=== PATIENT | female | born 1985 | race Caucasian/White ===

== ENCOUNTER 2016-07-31 21:40 | Emergency (ER) | payer BC ==
[~2016-07-31] VITALS: Ht 160 cm; Wt 86.5 kg
[2016-07-31 21:50] VITALS: Ht 160 cm; Wt 86.5 kg
[2016-07-31] MEDS ORDERED: IBUP-1542 PO (23:29)
[2016-07-31] MEDS ORDERED: PEN500 PO (23:29)
[2016-07-31] MEDS ORDERED: BENZ100C70 PO (23:29)
[2016-07-31] MEDS ORDERED: ACET500C5 PO (23:30)
--- NOTE | 2016-07-31 23:37 | ERD ---
ER Documentation Chief Complaint Date/Time DATE: 07/31/16 TIME: 23:32 Chief Complaint headache, sore throat x 5 days HPI Patient is a 31-year-old female who presents to the ED with sore throat, congestion, body aches 5 days. Denies night sweats, hemoptysis. She states that other people at home have been sick. She complains of pain when she swallows. Also complains of swollen neck. Tactile fevers at home. No chills. Denies abdominal pain, nausea, vomiting, diarrhea or constipation. She is able to eat but it is painful. Denies headache, dizziness, neck pain or stiffness. Denies rashes or seizures. She has taken Motrin for her pain. ROS All systems reviewed and are negative except as per history of present illness. Medications Home Meds Active Scripts Acetaminophen* (Tylophen*) 500 Mg Capsule, 1 CAP PO Q6H Y for PAIN AND OR ELEVATED TEMP, #20 CAP Prov:VIPINTARIANSAHARA PA-C 07/31/16 Ibuprofen* (Motrin*) 600 Mg Tab, 600 MG PO Q6, #30 TAB Prov:VIPINTARIANSAHARA PA-C 07/31/16 Benzonatate* (Tessalon Perle*) 100 Mg Capsule, 100 MG PO Q8H Y for COUGH for 10 Days, CAP Prov:VIPINTARIANSAHARA PA-C 07/31/16 Penicillin V Potassium* (Penicillin V K*) 500 Mg Tab, 500 MG PO BID for 10 Days , TAB Prov:VIPINTARIANSAHARA PA-C 07/31/16 Allergies Allergies: Coded Allergies: No Known Drug Allergies (Verified Allergy, Unknown, 09/19/14) PMhx/Soc History of Surgery: Yes () Anesthesia Reaction: No Hx Neurological Disorder: No Hx Respiratory Disorders: No Hx Cardiac Disorders: No Hx Psychiatric Problems: No Hx Miscellaneous Medical Probl: No Hx Alcohol Use: No Hx Substance Use: No Hx Tobacco Use: No FmHx Family History: No coronary disease, No diabetes, No other Physical Exam Vitals Vital Signs Date Time Temp Pulse Resp B/P Pulse Ox O2 Delivery O2 Flow Rate FiO2 07/31/16 21:50 100.0 69 20 144/86 100 Physical Exam GENERAL: Well-developed, well-nourished female. Appears in no acute distress. HEAD: Normocephalic, atraumatic. EYES: Pupils are equally reactive bilaterally. EOMs grossly intact. No conjunctival erythema. ENT: Moist mucous membranes. No uvula deviation. No kissing tonsils. No exudates. Erythematous throat. Cervical lymphadenopathy NECK: Supple. . No meningismus. negative kernig. negative brudinski. LUNG: Clear to auscultation bilaterally. No rhonchi, wheezing, rales or coarse breath sounds. HEART: Regular rate and rhythm. No murmurs, rubs or gallops. NEUROLOGIC: Alert and oriented. Moving all four extremities. 5/5 strength in all extremities. Normal speech. Steady gait. SKIN: Normal color. Warm and dry. No rashes or lesions. Capillary refill < 2 seconds Procedures/MDM ER COURSE: I kept the patient and/or family informed of laboratory and diagnostic imaging results throughout the emergency room course. MEDICAL DECISION MAKING: This is a 31-year-old female who presents with sore throat, congestion and body aches 5 days. Vital signs were reviewed. Patient is afebrile. Patient is not hypoxic. Patient is not toxic or ill-appearing. Patient likely has pharyngitis , bacterial versus viral. Low suspicion for pneumonia, PE, pneumothorax, ACS, epiglottitis, obstruction, TB, pertussis, meningitis, sepsis. Low suspicion for peritonsillar abscess, strep pharyngitis, mononucleosis, dental abscess DISCHARGE: At this time, patient is stable for discharge and outpatient management with no new complaints during the ER course. Patient was sent home with Tylenol, Motrin , Tessalon Perles and penicillin VK. Patient will be discharged home with instructions to recheck for new or worsening symptoms such as fever, nausea, weakness, LOC and to follow up with primary care in the next 1-2 days. Patient was advised to return to the ER for any new or worsening symptoms. Plan was discussed and patient and/or family understands and agrees. Home instructions were given. Departure Diagnosis: Primary Impression: Pharyngitis Pharyngitis/tonsillitis etiology: unspecified etiology Qualified Code: J02.9 - Pharyngitis, unspecified etiology Condition: Stable Patient Instructions: Pharyngitis, Strep (Presumed) Additional Instructions: Call your primary care doctor TOMORROW for an appointment during the next 1-2 days.See the doctor sooner or return here if your condition worsens before your appointment time. SAHARA MEDEROS PA-C Jul 31, 2016 23:37
== END 2016-07-31 23:40 | disposition home or self-care (01) ==
LOC: FTE 21:40
DX: J02.9 Acute pharyngitis, unspecified (principal)
CPT/HCPCS: 99284

== ENCOUNTER 2016-09-12 19:24 | Emergency (ER) | payer BC ==
[~2016-09-12] VITALS: Ht 152.4 cm; Wt 87.5 kg
[~2016-09-12 19:24] MED LIST: ACET500C5 PO; BENZ100C70 PO; IBUP-1542 PO; PEN500 PO
[2016-09-12 19:34] VITALS: Ht 152.4 cm; Wt 87.5 kg
[2016-09-12] MEDS ORDERED: ONDANSETRON 4 MG INJ IV STA (20:22)
[2016-09-12] MEDS ORDERED: SOD CHLORIDE 0.9% 1,000 ML IV STA (20:22)
[2016-09-12] MEDS ORDERED: morphine 4 MG/ML VIAL IV STA (20:22)
--- NOTE | 2016-09-12 20:29 | ERD ---
ER Documentation Chief Complaint Date/Time DATE: 09/12/16 TIME: 20:23 Chief Complaint pelvic pain and heavy bleeding started friday HPI 31-year-old female with history of dysmenorrhea presents to the emergency department complaining of bilateral lower pelvic pain, heavy menstrual bleeding , flank pain, nausea, and vomiting 6 days. Patient states the pain is intermittent and describes it as cramping. She currently reports a 10 out of 10 pain localized to her pelvic region. Patient states she has not attempted to treat her pain with Motrin or Tylenol at home thus far. She states today she vomited 4 times and is having difficulty keeping food down. She denies any dysuria, diarrhea, or fever. Patient states she has not been exposed to any new sexual partners. She denies any vaginal discharge or rash. Patient states she has been seen at this ER in the past for similar symptoms but notes that her bleeding is heavier this time. ROS All systems reviewed and are negative except as per history of present illness. Medications Home Meds Active Scripts Acetaminophen* (Tylophen*) 500 Mg Capsule, 1 CAP PO Q6H Y for PAIN AND OR ELEVATED TEMP, #20 CAP Prov:SHOKATRINTARIANCARSONAZ PA-C 07/31/16 Ibuprofen* (Motrin*) 600 Mg Tab, 600 MG PO Q6, #30 TAB Prov:SHOKATRINTARIANSAHARA PA-C 07/31/16 Benzonatate* (Tessalon Perle*) 100 Mg Capsule, 100 MG PO Q8H Y for COUGH for 10 Days, CAP Prov:SHOKATRINTARIANCARSONAZ PA-C 07/31/16 Penicillin V Potassium* (Penicillin V K*) 500 Mg Tab, 500 MG PO BID for 10 Days , TAB Prov:SHOKATRINTARIANCARSONAZ PA-C 07/31/16 Allergies Allergies: Coded Allergies: No Known Drug Allergies (Verified Allergy, Unknown, 09/12/16) PMhx/Soc Medical and Surgical Hx: pt denies Medical Hx History of Surgery: Yes ( x 3) Anesthesia Reaction: No Hx Neurological Disorder: No Hx Respiratory Disorders: No Hx Cardiac Disorders: No Hx Psychiatric Problems: No Hx Miscellaneous Medical Probl: No Hx Alcohol Use: No Hx Substance Use: No Hx Tobacco Use: No Smoking Status: Never smoker Physical Exam Vitals Vital Signs Date Time Temp Pulse Resp B/P Pulse Ox O2 Delivery O2 Flow Rate FiO2 09/12/16 19:34 98.8 84 18 101/62 98 Physical Exam Const: Well-developed, well-nourished, in moderate distress Head: Atraumatic Eyes: Normal Conjunctiva ENT: Normal External Ears, Nose and Mouth. Neck: Full range of motion..~ No meningismus. Resp: Clear to auscultation bilaterally Cardio: Regular rate and rhythm, no murmurs Abd: Soft, tenderness to palpation of bilateral pelvic region. non distended. Normal bowel sounds. No peritoneal signs Skin: No petechiae or rashes Back: Bilateral flank tenderness, no midline spinal tenderness Ext: No cyanosis, or edema Neur: Awake and alert Psych: Normal Mood and Affect Result Diagram: 09/12/16214909/12/162149 Results 24 hrs Laboratory Tests Test 09/12/16 20:40 09/12/16 21:50 Urine Color LT. YELLOW Urine Clarity SLIGHTLY CLOUDY Urine pH 6.0 Urine Specific [place] 1.020 Urine Ketones NEGATIVE Urine Nitrite NEGATIVE Urine Bilirubin NEGATIVE Urine Urobilinogen 0.2 E.U./dL Urine Leukocyte Esterase NEGATIVE Urine Microscopic RBC 0-2/HPF Urine Microscopic WBC 2-5/HPF Urine Squamous Epithelial Cells MODERATE Urine Bacteria FEW Urine Yeast RARE Urine Hemoglobin TRACE Urine Glucose NEGATIVE% Urine Total Protein NEGATIVE White Blood Count 13.210^3/ul Red Blood Count 4.2110^6/ul Hemoglobin 10.4g/dl Hematocrit 32.3% Mean Corpuscular Volume 76.7fl Mean Corpuscular Hemoglobin 24.7pg Mean Corpuscular Hemoglobin Concent 32.2g/dl Red Cell Distribution Width 14.6% Platelet Count 84328^3/UL Mean Platelet Volume 11.8fl Neutrophils % 60.8% Lymphocytes % 29.9% Monocytes % 5.4% Eosinophils % 3.0% Basophils % 0.5% Nucleated Red Blood Cells % 0.0/100WBC Neutrophils # 8.010^3/ul Lymphocytes # 3.910^3/ul Monocytes # 0.710^3/ul Eosinophils # 0.410^3/ul Basophils # 0.110^3/ul Nucleated Red Blood Cells # 0.010^3/ul Sodium Level 135mmol/L Potassium Level 5.0mmol/L Chloride Level 103mmol/L Carbon Dioxide Level 23mmol/L Anion Gap 14 Blood Urea Nitrogen 17mg/dl Creatinine 0.55mg/dl Glucose Level 95mg/dl Calcium Level 9.7mg/dl Total Bilirubin 0.2mg/dl Direct Bilirubin 0.00mg/dl Indirect Bilirubin 0.2mg/dl Aspartate Amino Transf (AST/SGOT) 41IU/L Alanine Aminotransferase (ALT/SGPT) 34IU/L Alkaline Phosphatase 117IU/L Total Protein 8.4g/dl Albumin 4.4g/dl Globulin 4.00g/dl Albumin/Globulin Ratio 1.10 Lipase 112U/L Current Medications Medications (Trade) Dose Ordered Sig/Farheen Route PRN Reason Start Time Stop Time Status Last Admin Dose Admin Sodium Chloride (NS) 1,000 ml @ 1,000 mls/hr Q1H STAT IV 09/12/16 20:22 09/12/16 21:21 DC 09/12/16 21:44 Morphine Sulfate (morphine) 4 mg ONCE STAT IV 09/12/16 20:22 09/12/16 20:24 DC 09/12/16 21:45 Ondansetron HCl (Zofran Inj) 4 mg ONCE STAT IV 09/12/16 20:22 09/12/16 20:24 DC 09/12/16 21:45 Procedures/MDM PROCEDURE: Pelvic ultrasound. CLINICAL INDICATION: Pelvic pain TECHNIQUE: Castano scale, color doppler, spectral doppler ultrasound of the pelvis was performed with transabdominal and transvaginal transducers. COMPARISON: No prior studies are available for comparison. FINDINGS: Uterus: Position: Anteverted. Normal myometrial echogenicity. Normal appearance of the endometrium. Ovaries: Normal sized ovaries with preserved blood flow. No adnexal masses. Sub-centimeter follicle noted within the right ovary. Free fluid: None. Measurements: Endometrium: 0.98 cm Uterus: 9.7 x 4.6 x 5.5 cm Right ovary: 2.8 x 1.6 x 1.9 cm Left ovary: 3.3 x 2.3 x 2.7 cm IMPRESSION: Normal examination. RPTAT: AADD .Dean Mcginnis MD, MD Date Time Electronically viewed and signed by .Dean Mcginnis MD, on 09/12/2016 21:56 .B/ CC: BERNARDINO RODRIGUEZ PA-C This is a well-appearing 31-year-old female with a history of dysmenorrhea who presents to the emergency department complaining of pelvic pain, heavy menstrual bleeding, nausea and vomiting 6 days. Patient denies any fever, new sexual partners, or other vaginal discharge. vital signs reviewed. Patient afebrile, normotensive and not tachycardic upon arrival. Abdominal exam significant for lower pelvic tenderness to palpation. CBC showed no evidence of slightly elevated white count of 13.2. Otherwise no evidence of severe anemia. CMP showed no evidence of electrolyte abnormalities, severe acidosis, alkalosis , renal failure, or liver disease. Lipase showed no evidence of acute pancreatitis. UA showed no evidence of acute infection or hematuria. Urine test was negative. Pelvic ultrasound unremarkable for acute abnormality. Patient received a bolus of fluid and pain medication while in the emergency department and reports significant improvement of symptoms. Patient clinical presentation consistent with dysmenorrhea. At this time I have low suspicion for ectopic , ovarian torsion, tubo-ovarian abscess , pelvic inflammatory disease, acute appendicitis, small bowel obstruction, severe systemic illness or sepsis. Patient to follow-up with [facility]URSE specialist for proper management of her ongoing dysmenorrhea. Patient will be provided with pain and nausea medication medication. All lab and imaging reports provided to the patient. Based on patient's history of present illness and physical examination the decision was made to discharge. The patient was re-evaluated after ED treatment and stabilizing measures, and symptoms have improved. There is no evidence of life threatening injuries or illnesses at this time. On re-examination, patient resting in no distress, stable vital signs, reports feeling better and safe for discharge with outpatient follow up with PMD in 1-2 days. Patient given return precautions. Departure Diagnosis: Primary Impression: Dysmenorrhea Additional Impression: Acute pain in female pelvis BERNARDINO RODRIGUEZ PA-C September 12, 2016 20:29
[2016-09-12 21:29] LABS: ADD UMIC YES; URINE BILIRUBIN (Dip) NEGATIVE (NEGATIVE); URINE BLOOD (Dip) TRACE (NEGATIVE); URINE COLOR LT. YELLOW (YELLOW); URINE GLUCOSE (Dip) NEGATIVE (NEGATIVE); URINE KETONES (Dip) NEGATIVE (NEGATIVE); URINE LEUKOCYTE ESTERASE (Dip) NEGATIVE (NEGATIVE); URINE NITRITE (Dip) NEGATIVE (NEGATIVE); URINE TOTAL PROTEIN (Dip) NEGATIVE (NEGATIVE); URINE UROBILINOGEN (Dip) 0.2 E.U./dL (0.1-1.0)
[2016-09-12 21:46] LABS: URINE RBCS 0-2 /HPF (0)
[2016-09-12 21:47] LABS: BACTERIA,URINE FEW; SQUAMOUS EPITHELIAL CELL,UR MODERATE
--- NOTE | 2016-09-12 21:57 | RADRPT ---
PROCEDURE: Pelvic ultrasound. CLINICAL INDICATION: Pelvic pain TECHNIQUE: Castano scale, color doppler, spectral doppler ultrasound of the pelvis was performed with transabdominal and transvaginal transducers. COMPARISON: No prior studies are available for comparison. FINDINGS: Uterus: Position: Anteverted. Normal myometrial echogenicity. Normal appearance of the endometrium. Ovaries: Normal sized ovaries with preserved blood flow. No adnexal masses. Sub-centimeter follicle noted within the right ovary. Free fluid: None. Measurements: Endometrium: 0.98 cm Uterus: 9.7 x 4.6 x 5.5 cm Right ovary: 2.8 x 1.6 x 1.9 cm Left ovary: 3.3 x 2.3 x 2.7 cm IMPRESSION: Normal examination. RPTAT: AADD .Dean Mcginnis MD, Date Time Electronically viewed and signed by .Dean Mcginnis MD, MD on 09/12/2016 21:56 .B/
[2016-09-12 21:59] LABS: ADD SCAN DIFF NO
[2016-09-12 22:02] LABS: BASOPHIL # 0.1 10^3/ul (0.0-0.1); BASOPHILS % 0.5 % (0.0-2.0); EOSINOPHILS # 0.4 10^3/ul (0.0-0.5); HEMATOCRIT 32.3 % (37.0-47.0); HEMOGLOBIN 10.4 g/dl (12.0-16.0); LYMPHOCYTES # 3.9 10^3/ul (0.8-2.9); LYMPHOCYTES % 29.9 % (15.0-51.0); MEAN CORPUSCULAR HEMOGLOBIN 24.7 pg (29.0-33.0); MEAN CORPUSCULAR HGB CONC 32.2 g/dl (32.0-37.0); MEAN CORPUSCULAR VOLUME 76.7 fl (82.0-101.0); MEAN PLATELET VOLUME 11.8 fl (7.4-10.4); MONOCYTE # 0.7 10^3/ul (0.3-0.9); MONOCYTES % 5.4 % (0.0-11.0); NEUTROPHILS % 60.8 % (39.0-77.0); PLATELET COUNT 342 10^3/UL (140-415); RED BLOOD COUNT 4.21 10^6/ul (4.20-5.40); RED CELL DISTRIBUTION WIDTH 14.6 % (11.5-14.5); WHITE BLOOD COUNT 13.2 10^3/ul (4.8-10.8)
[2016-09-12 22:21] LABS: ALBUMIN 4.4 g/dl (3.3-4.9); ALBUMIN/GLOBULIN RATIO 1.1; BILIRUBIN,INDIRECT 0.2 mg/dl (0-1.1); BILIRUBIN,TOTAL 0.2 mg/dl (0.2-1.3); CALCIUM 9.7 mg/dl (8.4-10.2); CREATININE 0.55 mg/dl (0.44-1.00); TOTAL PROTEIN 8.4 g/dl (6.1-8.1)
[2016-09-12] MEDS ORDERED: IBUP-1542 PO (22:58)
[2016-09-12] MEDS ORDERED: ONDA4TAB14 PO (22:58)
[2016-09-12] MEDS ORDERED: HYDR-906 PO (22:58)
[2016-09-12 23:33] VITALS: BP 115/72; PULSE 72; RESP 16
== END 2016-09-12 23:39 | disposition home or self-care (01) ==
LOC: FTE 19:24
DX: N94.6 Dysmenorrhea, unspecified (principal); R11.2 Nausea with vomiting, unspecified
CPT/HCPCS: 36415; 76830; 76856; 80053; 81001; 83690; 85025; 96374; 96375; 99285; J2270; J2405; J7030; 81003

== ENCOUNTER 2016-12-30 15:13 | Emergency (ER) | payer SELFPAY ==
[~2016-12-30] VITALS: Ht 152.4 cm; Wt 83.0 kg
[~2016-12-30 15:13] MED LIST changes: +HYDR-906 PO; +ONDA4TAB14 PO
[2016-12-30 15:15] VITALS: Ht 152.4 cm; Wt 83.0 kg
[2016-12-31] MEDS ORDERED: IBUP-1542 PO (20:15)
== END 2016-12-30 20:25 | disposition left against medical advice (07) ==
LOC: FTE 15:13
DX: Z53.21 Procedure and treatment not carried out due to patient leaving prior to being seen by health care provider (principal)

== ENCOUNTER 2016-12-31 15:40 | Emergency (ER) | payer BC ==
[~2016-12-31] VITALS: Wt 77.3 kg
[2016-12-31] MEDS ORDERED: IBUPROFEN 800 MG TAB PO ONE (17:00)
[2016-12-31] MEDS ORDERED: IBUP-1542 PO (20:15)
--- NOTE | 2016-12-31 20:21 | RADRPT ---
PROCEDURE: XR Right index finger CLINICAL INDICATION: Trauma 4 days ago TECHNIQUE: AP, oblique, and lateral radiographs were submitted. COMPARISON: None FINDINGS: Osseous structures: appear well mineralized and intact with no fracture or destructive process iden tified. Joint spaces: are well maintained, with no significant spurring, erosion or joint effusion evident. Soft tissues: appear unremarkable. IMPRESSION: Unremarkable right index finger. Physician Sharif Date Time Electronically viewed and signed by Rene Gutierrez Physician on 12/31/2016 20:20 RH/
--- NOTE | 2016-12-31 20:32 | ERD ---
ER Documentation Chief Complaint Date/Time DATE: 12/31/16 TIME: 20:25 Chief Complaint TWISTED Kenisha MCFARLANE FINGER HPI 31-year-old female complaining of right pain of her right index finger. Patient stated that she twisted it at work 5 days ago. She was trying to adjust a wire shelf, when her finger was caught in between the shelf. Patient stated that her pain and the pain and swelling have become progressively worse. She now is unable to move her finger due to pain. Patient is right-hand dominant. ROS All systems reviewed and are negative except as per history of present illness. Medications Home Meds Active Scripts Ibuprofen* (Motrin*) 600 Mg Tab, 600 MG PO Q6H Y for PAIN AND OR ELEVATED TEMP, #30 TAB Prov:ROVERTO CASE PLANS EXAMINER 12/31/16 Ondansetron (Ondansetron Odt) 4 Mg Tab.rapdis, 4 MG PO Q6H Y for NAUSEA AND/OR VOMITING, #20 TAB Prov:BERNARDINO RODRIGUEZ PA-C 09/12/16 Hydrocodone/Acetaminophen (Anton 5-325 Tablet) 1 Each Tablet, 1 TAB PO Q6H Y for PAIN, #7 TAB Prov:BERNARDINO RODRIGUEZ PA-C 09/12/16 Ibuprofen* (Motrin*) 600 Mg Tab, 600 MG PO Q6, #30 TAB Prov:BERNARDINO RODRIGUEZ PA-C 09/12/16 Acetaminophen* (Tylophen*) 500 Mg Capsule, 1 CAP PO Q6H Y for PAIN AND OR ELEVATED TEMP, #20 CAP Prov:SAHARA MEDEROS-C 07/31/16 Ibuprofen* (Motrin*) 600 Mg Tab, 600 MG PO Q6, #30 TAB Prov:SAHARA MEDEROS-C 07/31/16 Benzonatate* (Tessalon Perle*) 100 Mg Capsule, 100 MG PO Q8H Y for COUGH for 10 Days, CAP Prov:SAHARA MEDEROS-C 07/31/16 Penicillin V Potassium* (Penicillin V K*) 500 Mg Tab, 500 MG PO BID for 10 Days , TAB Prov:SAHARA MEDEROS PA-C 07/31/16 Allergies Allergies: Coded Allergies: No Known Drug Allergies (Verified Allergy, Unknown, 09/12/16) PMhx/Soc History of Surgery: Yes ( x 3) Anesthesia Reaction: No Hx Neurological Disorder: No Hx Respiratory Disorders: No Hx Cardiac Disorders: No Hx Psychiatric Problems: No Hx Miscellaneous Medical Probl: No Hx Alcohol Use: No Hx Substance Use: No Hx Tobacco Use: No Smoking Status: Never smoker Physical Exam Vitals Vital Signs Date Time Temp Pulse Resp B/P Pulse Ox O2 Delivery O2 Flow Rate FiO2 12/31/16 15:46 98.0 88 20 124/58 99 Physical Exam General: Patient is well-developed. Awake, alert, and conversant, in no apparent distress Skin: Warm and dry Head: Normocephalic, atraumatic without palpable deformities Eyes: Pupils equal, round, and reactive to light. Extraocular movements intact. No periorbital ecchymosis or step-off Chest: No surface trauma. Nontender without crepitus or deformity. No palpable subcutaneous air. Lungs have good tidal volume, lungs clear to auscultate bilaterally Heart: Regular rate and rhythm. No murmur, rub, or gallop Extremities: Right index finger swollen without ecchymosis, tender to palpation. Patient refused active or passive range of motion due to pain. Sensation to light touch intact. All peripheral pulses are intact and equal Neuro: Alert and oriented 4, GCS 15, cranial nerves II through XII intact. Motor and sensory exam is nonfocal. Reflexes are symmetric Results 24 hrs Current Medications Medications (Trade) Dose Ordered Sig/Farheen Route PRN Reason Start Time Stop Time Status Last Admin Dose Admin Ibuprofen (Motrin) 800 mg ONCE ONCE PO 12/31/16 17:00 12/31/16 17:01 DC 12/31/16 17:33 PROCEDURE: XR Right index finger CLINICAL INDICATION: Trauma 4 days ago TECHNIQUE: AP, oblique, and lateral radiographs were submitted. COMPARISON: None FINDINGS: Osseous structures: appear well mineralized and intact with no fracture or destructive process identified. Joint spaces: are well maintained, with no significant spurring, erosion or joint effusion evident. Soft tissues: appear unremarkable. IMPRESSION: Unremarkable right index finger. R Matt, Physician Date Time Electronically viewed and signed by Physician Sharif on 12/31/2016 20:20 RH/ CC: ROVERTO CASE NP Procedures/MDM Well-appearing 31-year-old female presented ED was right finger pain after injury. X-ray of the right index finger was unremarkable. No signs of fractures or dislocation. Likely patient has sustained a sprain of her right index finger The area of injury was immobilized with a metal finger splint. Patient was noted to be comfortable and neurovascularly intact both before and after the immobilization. Patient was given ibuprofen in the ED for pain. Patient appears well, stable for discharge and outpatient management. Medical decision making shared with patient and family. Education provided to patient and family. Patient and family expressed understanding of the plan. Medications on discharge: Ibuprofen. Follow-up: Primary care provider in 2-3 days or return to ED if worse. Disclaimer: Inadvertent spelling and grammatical errors are likely due to EHR/ dictation software use and do not reflect on the overall quality of patient care. Also, please note that the electronic time recorded on this note does not necessarily reflect the actual time of the patient encounter. Departure Diagnosis: Primary Impression: Finger sprain Encounter type: initial encounter Finger: index finger Sprain of finger site: unspecified site Laterality: right Qualified Code: S63.610A - Sprain of right index finger, unspecified site of finger, initial encounter Condition: Stable Patient Instructions: Sprain Finger Additional Instructions: Call your primary care doctor TOMORROW for an appointment during the next 2-3 days.See the doctor sooner or return here if your condition worsens before your appointment time. ROVERTO CASE NP Dec 31, 2016 20:32
[2016-12-31 20:50] VITALS: BP 118/64; PULSE 72; RESP 20; TEMP 98.3
== END 2016-12-31 20:51 | disposition home or self-care (01) ==
LOC: FTE 15:40
DX: S63.610A Unspecified sprain of right index finger, initial encounter (principal); W23.1XXA Caught, crushed, jammed, or pinched between stationary objects, initial encounter; Y92.89 Other specified places as the place of occurrence of the external cause
CPT/HCPCS: 29130; 73140; 99283; Z7610

== ENCOUNTER 2017-02-03 16:58 | Emergency (ER) | payer BC ==
[~2017-02-03] VITALS: Ht 160 cm; Wt 80.0 kg
[~2017-02-03 16:58] MED LIST changes: -PEN500 PO; +PENI500T PO
[2017-02-03 17:13] VITALS: Ht 160 cm; Wt 80.0 kg
--- NOTE | 2017-02-03 19:42 | RADRPT ---
PROCEDURE: XR Chest. CLINICAL INDICATION: Cough TECHNIQUE: A single portable view of the chest was obtained. COMPARISON: None FINDINGS: The cardiomediastinal silhouette is within normal limits. The lung volumes are low with bibasilar co mpressive atelectasis. The remaining lungs and pleural spaces are clear. The soft tissues and osseo us structures are unremarkable. IMPRESSION: No acute cardiopulmonary disease. Low lung volumes with bibasilar compressive atelectasis. RPTAT: HPNM Physician Courtney Date Time Electronically viewed and signed by Nadir Alcocer Physician on 02/03/2017 19:42 /
[2017-02-03] MEDS ORDERED: UDROBDM PO (19:53)
[2017-02-03] MEDS ORDERED: TYL500 PO (19:54)
--- NOTE | 2017-02-03 20:10 | ERD ---
ER Documentation Chief Complaint Date/Time DATE: 02/03/17 TIME: 20:[address],COUGH HPI This is a 31-year-old female presents to the ER with a sore throat and cough for the last 3 days. Patient states that cough is worsening and she states that her back history time she coughs. Patient denies any chest pain or shortness of breath. That she had a fever the first 2 days, however the fever has resolved. Patient denies any nausea vomiting or diarrhea. There are no sick contacts at home. She has not traveled anywhere. ROS 12 point review of systems was done, all negative except per HPI. Medications Home Meds Active Scripts Acetaminophen* (Tylenol*) 500 Mg Tab, 1000 MG PO Q8 Y for PAIN AND OR ELEVATED TEMP for 3 Days, TAB Prov:SOY DEXTER 02/03/17 Guaifenesin-Dextromethorphan* (Robitussin* DM) 100MG/10MG/5ML Syrup, 10 ML PO Q4H Y for COUGH for 5 Days, ML Prov:SOY DEXTER 02/03/17 Ibuprofen* (Motrin*) 600 Mg Tab, 600 MG PO Q6H Y for PAIN AND OR ELEVATED TEMP, #30 TAB Prov:ROVERTO CASE CASE MANAGEMENT RN 12/31/16 Ondansetron (Ondansetron Odt) 4 Mg Tab.rapdis, 4 MG PO Q6H Y for NAUSEA AND/OR VOMITING, #20 TAB Prov:BERNARDINO RODRIGUEZ PA-C 09/12/16 Hydrocodone/Acetaminophen ([place] 5-325 Tablet) 1 Each Tablet, 1 TAB PO Q6H Y for PAIN, #7 TAB Prov:BERNARDINO RODRIGUEZC 09/12/16 Ibuprofen* (Motrin*) 600 Mg Tab, 600 MG PO Q6, #30 TAB Prov:BERNARDINO RODRIGUEZ PA-C 09/12/16 Acetaminophen* (Tylophen*) 500 Mg Capsule, 1 CAP PO Q6H Y for PAIN AND OR ELEVATED TEMP, #20 CAP Prov:SAHARA MEDEROS PA-C 07/31/16 Ibuprofen* (Motrin*) 600 Mg Tab, 600 MG PO Q6, #30 TAB Prov:SAHARA MEDEROSC 07/31/16 Benzonatate* (Tessalon Perle*) 100 Mg Capsule, 100 MG PO Q8H Y for COUGH for 10 Days, CAP Prov:SAHARA MEDEROS PA-C 07/31/16 Penicillin V Potassium* (Penicillin V K*) 500 Mg Tab, 500 MG PO BID for 10 Days , TAB Prov:OMKARSAHARA BRYANT PA-C 07/31/16 Allergies Allergies: Coded Allergies: No Known Drug Allergies (Verified Allergy, Unknown, 09/12/16) PMhx/Soc Medical and Surgical Hx: pt denies Medical Hx History of Surgery: Yes ( x 3) Anesthesia Reaction: No Hx Neurological Disorder: No Hx Respiratory Disorders: No Hx Cardiac Disorders: No Hx Psychiatric Problems: No Hx Miscellaneous Medical Probl: No Hx Alcohol Use: No Hx Substance Use: No Hx Tobacco Use: No Smoking Status: Never smoker Physical Exam Vitals Vital Signs Date Time Temp Pulse Resp B/P Pulse Ox O2 Delivery O2 Flow Rate FiO2 02/03/17 17:13 98.1 79 20 121/72 99 Physical Exam GENERAL: The patient is well-developed, well-nourished, in no acute distress. NECK: Cervical spine is non tender with no step off. Supple, no nuchal rigidity HEENT: Atraumatic. Pupils equal, round and reactive to light. Extraocular muscles are grossly intact. Conjunctivae pink, no discharge. Bilateral tympanic membranes are clear with no evidence of erythema, effusion or dulling of the light reflex. Tonsilar erythema with no exudates or uvular deviation. Clear rhinorrhea. RESPIRATORY: Clear to auscultation bilaterally. There are no rales, wheezes or rhonchi. HEART: Regular rate and rhythm. No murmurs, clicks, rubs or gallops. EXTREMITIES: No clubbing or cyanosis. Full range of motion. Grossly neurovascularly intact. NEUROLOGIC: Alert and oriented. Cranial nerves II through XII are intact. SKIN: There is no rash. The skin is warm and dry. Results [address] [address] Radiology Main Line: [phone] DIAGNOSTIC IMAGING REPORT Patient: JUANJOSE LOVE : 1985 Age: 31 Sex: F MR #: [id number] DOS: 02/03/17 0000 Ordering MD: SOY DEXTER PA-C Location: [facility] Room/Bed: PROCEDURE: XR Chest. CLINICAL INDICATION: Cough TECHNIQUE: A single portable view of the chest was obtained. COMPARISON: None FINDINGS: The cardiomediastinal silhouette is within normal limits. The lung volumes are low with bibasilar compressive atelectasis. The remaining lungs and pleural spaces are clear. The soft tissues and osseous structures are unremarkable. IMPRESSION: No acute cardiopulmonary disease. Low lung volumes with bibasilar compressive atelectasis. RPTAT: HPNM Physician Courtney Date Time Electronically viewed and signed by Nadir Alcocer Physician on 02/03/2017 19 :42 / CC: SOY DEXTER Procedures/MDM Differential diagnosis includes but is not limited to; Viral URI, allergic rhinitis, bronchitis, pertussis,pneumonia. This is likely viral in etiology. Clinical suspicion for pneumonia is low as patient appears well, is not hypoxic or in any respiratory distress. Additionally, patients physical examination is benign. Plan was discussed with patient they understand and agree. Patient needs to follow up with PCP in 1-2 days or return to ER sooner if symptoms worsen. Departure Diagnosis: Primary Impression: Upper respiratory infection Condition: Stable Patient Instructions: Preventing Common Respiratory Infections Additional Instructions: Call your primary care doctor TOMORROW for an appointment during the next 1-2 days.See the doctor sooner or return here if your condition worsens before your appointment time. SOY DEXTER Feb 03, 2017 20:10
== END 2017-02-03 20:00 | disposition home or self-care (01) ==
LOC: FTE 16:58
DX: J06.9 Acute upper respiratory infection, unspecified (principal)
CPT/HCPCS: 71010

== ENCOUNTER 2017-03-11 19:09 | Emergency (ER) | payer BC ==
[~2017-03-11] VITALS: Ht 152.4 cm; Wt 84.5 kg
[~2017-03-11 19:09] MED LIST changes: +TYL500 PO; +UDROBDM PO
[2017-03-11 19:46] VITALS: Ht 152.4 cm; Wt 84.5 kg
[2017-03-11] MEDS ORDERED: HYDROCODONE/APAP (5/325) TAB PO ONE (23:00)
[2017-03-11 23:35] LABS: BASOPHIL # 0.1 10^3/ul (0.0-0.1); BASOPHILS % 0.3 % (0.0-2.0); EOSINOPHILS # 0.3 10^3/ul (0.0-0.5); EOSINOPHILS % 1.3 % (0.0-7.0); HEMATOCRIT 33.9 % (37.0-47.0); HEMOGLOBIN 10.4 g/dl (12.0-16.0); LYMPHOCYTES # 4.4 10^3/ul (0.8-2.9); LYMPHOCYTES % 20.5 % (15.0-51.0); MEAN CORPUSCULAR HEMOGLOBIN 24.2 pg (29.0-33.0); MEAN CORPUSCULAR HGB CONC 30.7 g/dl (32.0-37.0); MEAN CORPUSCULAR VOLUME 78.8 fl (82.0-101.0); MEAN PLATELET VOLUME 10.5 fl (7.4-10.4); MONOCYTE # 1.3 10^3/ul (0.3-0.9); MONOCYTES % 6.2 % (0.0-11.0); NEUTROPHIL # 15.2 10^3/ul (1.6-7.5); NEUTROPHILS % 71.2 % (39.0-77.0); PLATELET COUNT 473 10^3/UL (140-415); RED CELL DISTRIBUTION WIDTH 15.5 % (11.5-14.5); WHITE BLOOD COUNT 21.3 10^3/ul (4.8-10.8)
[2017-03-11 23:42] LABS: ADD UMIC YES; UR AMORPHOUS CRYSTAL MODERATE /HPF (NONE SEEN); UR ASCORBIC ACID NEGATIVE (NEGATIVE); UR BACTERIA FEW /HPF (NONE SEEN); UR BILIRUBIN (Dip) NEGATIVE (NEGATIVE); UR BLOOD (Dip) NEGATIVE (NEGATIVE); UR CLARITY CLOUDY (CLEAR); UR COLOR YELLOW (YELLOW); UR GLUCOSE (Dip) NEGATIVE (NEGATIVE); UR KETONES (Dip) NEGATIVE (NEGATIVE); UR LEUKOCYTE ESTERASE (Dip) NEGATIVE Leu/ul (NEGATIVE); UR NITRITE (Dip) POSITIVE (NEGATIVE); UR RBC 0 /HPF (0-5); UR SPECIFIC GRAVITY (Dip) 1.023 (1.003-1.030); UR SQUAMOUS EPITHELIAL CELL FEW /HPF (FEW); UR TOTAL PROTEIN (Dip) NEGATIVE (NEGATIVE); UR UROBILINOGEN (Dip) 1+ mg/dL (NEGATIVE)
[2017-03-11 23:51] LABS: POSITIVE DIFF @See below
[2017-03-11 23:54] LABS: ALBUMIN/GLOBULIN RATIO 1.17; BILIRUBIN,INDIRECT 0.1 mg/dl (0-1.1); BILIRUBIN,TOTAL 0.1 mg/dl (0.2-1.3); CALCIUM 9.6 mg/dl (8.4-10.2); CREATININE 0.56 mg/dl (0.44-1.00); POTASSIUM 4.7 mmol/L (3.5-5.1); TOTAL PROTEIN 7.4 g/dl (6.1-8.1)
[2017-03-12] MEDS ORDERED: SOD CHLORIDE 0.9% 1,000 ML IV STA (00:20)
[2017-03-12] MEDS ORDERED: ONDANSETRON 4 MG INJ IV STA (00:20)
[2017-03-12] MEDS ORDERED: morphine 4 MG/ML VIAL IV STA (00:20)
--- NOTE | 2017-03-12 01:11 | RADRPT ---
PROCEDURE: CT Abdomen and pelvis without contrast. CLINICAL INDICATION: Abdominal pain. TECHNIQUE: CT scan of the abdomen and pelvis was performed on a multi-detector high-resolution CT scanner. Contiguous axial images were obtained from the lung bases to the ischial tuberosities wit hout intravenous contrast. Coronal and sagittal reformatted images were also obtained. Images were reviewed on the PACS workstation. One or more of the following dose reduction techniques were used: - Automated exposure control. - Adjustment of the mA and/or kV according to patient size. - Use of iterative reconstruction technique. Exam CTD/vol = 17.11 mGy. Total exam DLP = 1013.48 mGy-cm. COMPARISON: None. FINDINGS: Evaluation of the lung bases demonstrates a calcified granuloma within the right middle lobe. Abdomen: The liver is normal in size. There is no focal mass or dilatation of the biliary tree. T he gallbladder is not distended. The spleen, pancreas and bilateral adrenal glands are within keira l limits. Bilateral kidneys are normal in size with no contour deforming mass identified. There is no radiopaque renal or ureteral calculus identified. There is no hydronephrosis or hydroureter. T here is no retroperitoneal adenopathy. The abdominal aorta is of normal caliber. There is no abnormal bowel wall thickening or distension. There is no bowel obstruction or free air . A normal appendix is identified. There is no diverticulosis or diverticulitis. There is no asci elif. Pelvis: The bladder is unremarkable. The uterus and adnexa are within normal limits. There is no significant pelvic adenopathy or free fluid. Evaluation of the osseous structures demonstrates no suspicious lytic or blastic lesion. IMPRESSION: No acute abnormality identified within the abdomen and pelvis. .Leroy Chicas MD, MD Date Time Electronically viewed and signed by .Leroy Chicas MD, MD on 03/12/2017 01:10 .T/
[2017-03-12] MEDS ORDERED: CEPH-443 PO (01:22)
[2017-03-12] MEDS ORDERED: PHEN-538 PO (01:22)
--- NOTE | 2017-03-12 01:25 | ERD ---
ER Documentation Chief Complaint Chief Complaint BIB SELF, CC: ABDOMIANL PAIN AND HEADACHE X 1 DAY HPI This is a 31-year-old female who has left lower abdominal pain that began today. Also headache. No nausea vomiting or diarrhea. Pain is worse after food. No dysuria but does admit to increased urinary frequency. Last menstrual period was last week. No hematuria. Not taking any medications. ROS All systems reviewed and are negative except as per history of present illness. Medications Home Meds Active Scripts Phenazopyridine Hcl* (Pyridium*) 200 Mg Tab, 200 MG PO TID Y for URINARY PAIN, # 6 TAB Prov:MELVI BURKETT PA-C 03/12/17 Cephalexin* (Keflex*) 500 Mg Capsule, 500 MG PO BID for 5 Days, CAP Prov:MELVI BURKETT PA-C 03/12/17 Acetaminophen* (Tylenol*) 500 Mg Tab, 1000 MG PO Q8 Y for PAIN AND OR ELEVATED TEMP for 3 Days, TAB Prov:SOY DEXTER 02/03/17 Guaifenesin-Dextromethorphan* (Robitussin* DM) 100MG/10MG/5ML Syrup, 10 ML PO Q4H Y for COUGH for 5 Days, ML Prov:SOY DEXTER 02/03/17 Ibuprofen* (Motrin*) 600 Mg Tab, 600 MG PO Q6H Y for PAIN AND OR ELEVATED TEMP, #30 TAB Prov:ROVERTO CASE FUEL CELL DESIGNER 12/31/16 Ondansetron (Ondansetron Odt) 4 Mg Tab.rapdis, 4 MG PO Q6H Y for NAUSEA AND/OR VOMITING, #20 TAB Prov:BERNARDINO RODRIGUEZ PA-C 09/12/16 Hydrocodone/Acetaminophen ([place] 5-325 Tablet) 1 Each Tablet, 1 TAB PO Q6H Y for PAIN, #7 TAB Prov:BERNARDINO RODRIGUEZ PA-C 09/12/16 Ibuprofen* (Motrin*) 600 Mg Tab, 600 MG PO Q6, #30 TAB Prov:BERNARDINO RODRIGUEZ PA-C 09/12/16 Acetaminophen* (Tylophen*) 500 Mg Capsule, 1 CAP PO Q6H Y for PAIN AND OR ELEVATED TEMP, #20 CAP Prov:SAHARA MEDEROS PA-C 07/31/16 Ibuprofen* (Motrin*) 600 Mg Tab, 600 MG PO Q6, #30 TAB Prov:ROSA MSAHARA BLACK 07/31/16 Benzonatate* (Tessalon Perle*) 100 Mg Capsule, 100 MG PO Q8H Y for COUGH for 10 Days, CAP Prov:ROSA MSAHARA BLACK 07/31/16 Penicillin V Potassium* (Penicillin V K*) 500 Mg Tab, 500 MG PO BID for 10 Days , TAB Prov:CARSON MEDEROSSARI LUNSFORDC 07/31/16 Allergies Allergies: Coded Allergies: No Known Drug Allergies (Verified Allergy, Unknown, 09/12/16) PMhx/Soc Medical and Surgical Hx: pt denies Medical Hx History of Surgery: Yes ( x 3) Anesthesia Reaction: No Hx Neurological Disorder: No Hx Respiratory Disorders: No Hx Cardiac Disorders: No Hx Psychiatric Problems: No Hx Miscellaneous Medical Probl: No Hx Alcohol Use: No Hx Substance Use: No Hx Tobacco Use: No Smoking Status: Never smoker FmHx Family History: No diabetes Physical Exam Vitals Vital Signs Date Time Temp Pulse Resp B/P Pulse Ox O2 Delivery O2 Flow Rate FiO2 03/11/17 19:46 98.8 81 19 120/81 100 Physical Exam INITIAL VITAL SIGNS: Reviewed by me GENERAL: Awake, alert and oriented x 4, well appearing, nontoxic, speaking in full sentences. No acute distress HEAD: Atraumatic NECK: Supple. No masses. Full range of motion. No meningismus. No midline tenderness. EYES: EOMI. PERRL. RESPIRATORY: Clear to auscultation bilaterally. Symmetric chest wall rise. No wheezing or rales. No accessory muscle use. CV: Regular rate and rhythm. No murmurs, rubs, or gallops. ABDOMEN: Soft, non-distended. Left lower quadrant tenderness. Negative Alvarez s. Negative McBurneys point tenderness. No CVA tenderness bilaterally. No guarding. No rebound. : Deffered. EXTREMITIES: No clubbing or cyanosis. No edema. Moving all extremities normally. BACK: No midline tenderness to palpation. No step-offs. Result Diagram: 03/11/17 2255 03/11/171 Results 24 hrs Laboratory Tests Test 03/11/17 22:55 03/11/17 23:00 White Blood Count 21.310^3/ul Red Blood Count 4.3010^6/ul Hemoglobin 10.4g/dl Hematocrit 33.9% Mean Corpuscular Volume 78.8fl Mean Corpuscular Hemoglobin 24.2pg Mean Corpuscular Hemoglobin Concent 30.7g/dl Red Cell Distribution Width 15.5% Platelet Count 24323^3/UL Mean Platelet Volume 10.5fl Neutrophils % 71.2% Lymphocytes % 20.5% Monocytes % 6.2% Eosinophils % 1.3% Basophils % 0.3% Nucleated Red Blood Cells % 0.0/100WBC Neutrophils # 15.210^3/ul Lymphocytes # 4.410^3/ul Monocytes # 1.310^3/ul Eosinophils # 0.310^3/ul Basophils # 0.110^3/ul Nucleated Red Blood Cells # 0.010^3/ul Sodium Level 140mmol/L Potassium Level 4.7mmol/L Chloride Level 100mmol/L Carbon Dioxide Level 30mmol/L Anion Gap 15 Blood Urea Nitrogen 20mg/dl Creatinine 0.56mg/dl Glucose Level 96mg/dl Calcium Level 9.6mg/dl Total Bilirubin 0.1mg/dl Direct Bilirubin 0.00mg/dl Indirect Bilirubin 0.1mg/dl Aspartate Amino Transf (AST/SGOT) 20IU/L Alanine Aminotransferase (ALT/SGPT) 28IU/L Alkaline Phosphatase 139IU/L Total Protein 7.4g/dl Albumin 4.0g/dl Globulin 3.40g/dl Albumin/Globulin Ratio 1.17 Lipase 139U/L Urine Color YELLOW Urine Clarity CLOUDY Urine pH 7.0 Urine Specific Hector 1.023 Urine Ketones NEGATIVEmg/dL Urine Nitrite POSITIVEmg/dL Urine Bilirubin NEGATIVEmg/dL Urine Urobilinogen 1+mg/dL Urine Leukocyte Esterase NEGATIVELeu/ul Urine Microscopic RBC 0/HPF Urine Microscopic WBC 1/HPF Urine Squamous Epithelial Cells FEW/HPF Urine Amorphous Crystals MODERATE/HPF Urine Bacteria FEW/HPF Urine Hemoglobin NEGATIVEmg/dL Urine Glucose NEGATIVEmg/dL Urine Total Protein NEGATIVEmg/dl Current Medications Medications (Trade) Dose Ordered Sig/Farheen Route PRN Reason Start Time Stop Time Status Last Admin Dose Admin Acetaminophen/ Hydrocodone Bitart 1 tab 1 tab ONCE ONCE PO 03/11/17 23:00 03/11/17 23:01 DC 03/11/17 22:54 Sodium Chloride (NS) 1,000 ml @ 1,000 mls/hr Q1H STAT IV 03/12/17 00:20 03/12/17 01:19 DC 03/12/17 00:55 Morphine Sulfate (morphine) 4 mg ONCE STAT IV 03/12/17 00:20 03/12/17 00:22 DC 03/12/17 00:55 Ondansetron HCl (Zofran Inj) 4 mg ONCE STAT IV 03/12/17 00:20 03/12/17 00:22 DC 03/12/17 00:55 Procedures/MDM Patient presents with abdominal pain. Patients is alert, oriented, well appearing, and in no distress with normal vital signs. There is no fever, tachycardia, or tachypnea. The differential diagnosis includes but is not limited to appendicitis, cholelithiasis, cholecystitis, pancreatitis, hepatitis , gastritis, peptic ulcer disease, bowel obstruction, diverticulitis, renal disease including stones, torsion, AAA, pyelonephritis, and others. Patient's white blood cell count is markedly elevated greater than 20,000. Urine does show evidence of infection. Chemistry panel unremarkable. CT scan negative. Patient discharged with Keflex and Pyridium. Patient counseled regarding my diagnostic impression and care plan. Prior to discharge all questions answered. Pt agrees with treatment plan and understands strict return precautions. Pt is instructed to follow up with primary care provider within 24-48 hours. Precautionary instructions provided including instructions to return to the ER if not improving or for any worsening or changing symptoms or concerns. Departure Diagnosis: Primary Impression: Cystitis Condition: Stable Patient Instructions: Cystitis Additional Instructions: Llame al doctor BLAKE y christine bassam ANDREA PARA DENTRO DE 1-2 TORRES.Dgale a la secretaria que nosotros le instruimos hacer esta andrea.Avise o llame si arce condicin se empeora antes de la andrea. Regresa aqui si peor o no mejor. MELVI BURKETT PA-C Mar 12, 2017 01:25
[2017-03-12 02:05] VITALS: BP 112/58; PULSE 75; RESP 18; TEMP 98
== END 2017-03-12 02:05 | disposition home or self-care (01) ==
LOC: FTE 19:09
DX: N30.90 Cystitis, unspecified without hematuria (principal)
CPT/HCPCS: 36415; 74176; 80053; 81001; 83690; 85025; 96374; 96375; 99285; J2270; J2405; J7030; Z7610

== ENCOUNTER 2017-04-26 23:49 | Emergency (ER) | payer BC ==
[~2017-04-26] VITALS: Ht 165.1 cm; Wt 80.0 kg
[~2017-04-26 23:49] MED LIST changes: +CEPH-443 PO; +PHEN-538 PO
[2017-04-26 23:50] VITALS: Ht 165.1 cm; Wt 80.0 kg
[2017-04-27] MEDS ORDERED: KETOROLAC 60 MG INJ IM STA (02:16)
[2017-04-27] MEDS ORDERED: ACETAMINOPHEN 325 MG TAB PO ONE (02:30)
[2017-04-27 02:31] LABS: URINE BLOOD (Dip) POC 2+ (NEGATIVE)
[2017-04-27 02:35] LABS: URINE BLOOD (Dip) POC 1+ (NEGATIVE)
--- NOTE | 2017-04-27 02:37 | ERD ---
ER Documentation Chief Complaint Chief Complaint Bilateral flank pain, painful urination x 1 week HPI 31-year-old female presents to emergency department for complaints of bilateral flank pain, dysuria for 1 week. Patient is complaining of pain upon urination, burning pain, 6/10 scale, accompanied with urinary urgency and frequency and foul-smelling urine. Patient started to have fever today. Patient denies any nausea or vomiting. Patient did not take any medications to help with symptoms. Patient denies any abdominal pain. ROS All systems reviewed and are negative except as per history of present illness. Medications Home Meds Active Scripts Ibuprofen* (Motrin*) 600 Mg Tab, 600 MG PO Q6H Y for PAIN AND OR ELEVATED TEMP, #30 TAB Prov:SEVERO STEINBERG NP 04/27/17 Acetaminophen* (Tylophen*) 500 Mg Capsule, 1 CAP PO Q6H Y for PAIN AND OR ELEVATED TEMP, #20 CAP Prov:SEVERO STEINBERG NP 04/27/17 Phenazopyridine Hcl* (Pyridium*) 200 Mg Tab, 200 MG PO TID Y for URINARY PAIN, # 6 TAB Prov:SEVERO STEINBERG NP 04/27/17 Ciprofloxacin Hcl* (Ciprofloxacin Hcl*) 500 Mg Tablet, 500 MG PO BID for 10 Days , TAB Prov:SEVERO STEINBERG NP 04/27/17 Phenazopyridine Hcl* (Pyridium*) 200 Mg Tab, 200 MG PO TID Y for URINARY PAIN, # 6 TAB Prov:MELVI BURKETT PA-C 03/12/17 Cephalexin* (Keflex*) 500 Mg Capsule, 500 MG PO BID for 5 Days, CAP Prov:MELVI BURKETT PA-C 03/12/17 Acetaminophen* (Tylenol*) 500 Mg Tab, 1000 MG PO Q8 Y for PAIN AND OR ELEVATED TEMP for 3 Days, TAB Prov:SOY DEXTER 02/03/17 Guaifenesin-Dextromethorphan* (Robitussin* DM) 100MG/10MG/5ML Syrup, 10 ML PO Q4H Y for COUGH for 5 Days, ML Prov:SOY DEXTER 02/03/17 Ibuprofen* (Motrin*) 600 Mg Tab, 600 MG PO Q6H Y for PAIN AND OR ELEVATED TEMP, #30 TAB Prov:EVIE,ROVERTO X. PERSONNEL TECHNICIAN 12/31/16 Ondansetron (Ondansetron Odt) 4 Mg Tab.rapdis, 4 MG PO Q6H Y for NAUSEA AND/OR VOMITING, #20 TAB Prov:BERNARDINO RODRIGUEZ-C 09/12/16 Hydrocodone/Acetaminophen ([place] 5-325 Tablet) 1 Each Tablet, 1 TAB PO Q6H Y for PAIN, #7 TAB Prov:BERNARDINO RODRIGUEZ-C 09/12/16 Ibuprofen* (Motrin*) 600 Mg Tab, 600 MG PO Q6, #30 TAB Prov:BERNARDINO RODRIGUEZ PA-C 09/12/16 Acetaminophen* (Tylophen*) 500 Mg Capsule, 1 CAP PO Q6H Y for PAIN AND OR ELEVATED TEMP, #20 CAP Prov:SAHARA MEDEROS-C 07/31/16 Ibuprofen* (Motrin*) 600 Mg Tab, 600 MG PO Q6, #30 TAB Prov:SAHARA MEDEROS-C 07/31/16 Benzonatate* (Tessalon Perle*) 100 Mg Capsule, 100 MG PO Q8H Y for COUGH for 10 Days, CAP Prov:SAHARA MEDEROS PA-C 07/31/16 Penicillin V Potassium* (Penicillin V K*) 500 Mg Tab, 500 MG PO BID for 10 Days , TAB Prov:SAHARA MEDEROS PA-C 07/31/16 Allergies Allergies: Coded Allergies: No Known Drug Allergies (Verified Allergy, Unknown, 09/12/16) PMhx/Soc History of Surgery: Yes ( x 3) Anesthesia Reaction: No Hx Neurological Disorder: No Hx Respiratory Disorders: No Hx Cardiac Disorders: No Hx Psychiatric Problems: No Hx Miscellaneous Medical Probl: No Hx Alcohol Use: No Hx Substance Use: No Hx Tobacco Use: No FmHx Family History: No coronary disease, No diabetes, No other Physical Exam Vitals Vital Signs Date Time Temp Pulse Resp B/P Pulse Ox O2 Delivery O2 Flow Rate FiO2 04/26/17 23:50 1006.1 112 20 138/74 99 Physical Exam GENERAL: The patient is well developed and appropriate for usual state of health, in no apparent distress. CHEST: Clear to auscultation bilaterally. There are no rales, wheezes or rhonchi. HEART: Regular rate and rhythm. No murmurs, clicks, rubs or gallops. No S3 or S4. ABDOMEN: Soft, nontender and nondistended. Good bowel sounds. No rebound or guarding. No gross peritonitis. No gross organomegaly or masses. No Alvarez sign or McBurney point tenderness. BACK: No midline or flank tenderness. EXTREMITIES: Equal pulses bilaterally. There is no peripheral clubbing, cyanosis or edema. No focal swelling or erythema. Full range of motion. Grossly neurovascularly intact. NEURO: Alert and oriented. Cranial nerves 2-12 intact. Motor strength in all 4 extremities with 5/5 strength. Sensation grossly intact. Normal speech and gait. SKIN: There is no apparent rash or petechia. The skin is warm and dry. HEMATOLOGIC AND LYMPHATIC: There is no evidence of excessive bruising or lymphedema. No gross cervical, axillary, or inguinal lymphadenopathy. Results 24 hrs Laboratory Tests Test 04/27/17 02:32 04/27/17 02:37 Bedside Urine pH (LAB) 6.0 5.5 Bedside Urine Protein (LAB) 1+ Negative Bedside Urine Glucose (UA) Negative Negative Bedside Urine Ketones (LAB) 1+ Negative Bedside Urine Blood 2+ 1+ Bedside Urine Nitrite (LAB) Positive Negative Bedside Urine Leukocyte Esterase (L 1+ Negative Current Medications Medications (Trade) Dose Ordered Sig/Farheen Route PRN Reason Start Time Stop Time Status Last Admin Dose Admin Ketorolac Tromethamine (Toradol) 60 mg ONCE STAT IM 04/27/17 02:16 04/27/17 02:17 DC 04/27/17 02:38 Acetaminophen 650 mg 650 mg ONCE ONCE PO 04/27/17 02:30 04/27/17 02:31 DC 04/27/17 02:38 Ceftriaxone Sodium (Rocephin) 50 ml @ 100 mls/hr ONCE ONCE IVPB 04/27/17 03:00 04/27/17 03:00 DC Ceftriaxone Sodium (Rocephin) 1 gm ONCE ONCE IM 04/27/17 03:00 04/27/17 03:01 DC 04/27/17 02:47 IM Rocephin, Tylenol and Toradol was given here in emergency department, tolerated medication well. Patient was given medicines for fever control here in the emergency department. After treatment, patient temperature improved and lower. Patient appears well and is hemodynamically stable. Procedures/MDM Medical Decision Making: Patients symptoms are consistent with urinary tract infection. Possible early pyelonephritis. Outpatient management is appropriate at this time since patient is stable. There is low suspicion for abdominal emergencies at this time. Patients abdominal exam is normal. There is low suspicion for sepsis. Patient appears well and is hemodynamically stable. Disposition: Home. Stable Prescription ciprofloxacin, Pyridium, ibuprofen and Tylenol Instructions: Patient is advised to take medications as prescribed. Patient is advised to rest, increase fluid intake and do good perineal hygiene. Patient is advised that if symptoms are worse, severe abdominal pain, uncontrolled vomiting , high fever, severe flank pain, worst signs and symptoms, to return to the emergency department immediately. Otherwise, patient can follow up with primary care doctor in 5-7 days. Disclaimer: Inadvertent spelling and grammatical errors are likely due to EHR/ dictation software use and do not reflect on the overall quality of patient care. Also, please note that the electronic time recorded on this note does not necessarily reflect the actual time of the patient encounter. Departure Diagnosis: Primary Impression: UTI (urinary tract infection) Urinary tract infection type: acute cystitis Hematuria presence: without hematuria Qualified Code: N30.00 - Acute cystitis without hematuria Condition: Stable Patient Instructions: Understanding Urinary Tract Infections (UTIs) Additional Instructions: Patient is advised to take medications as prescribed. Patient is advised to rest , increase fluid intake and do good perineal hygiene. Patient is advised that if symptoms are worse, severe abdominal pain, uncontrolled vomiting, high fever , severe flank pain, worst signs and symptoms, to return to the emergency department immediately. Otherwise, patient can follow up with primary care doctor in 5-7 days. SEVERO STEINBERG NP Apr 27, 2017 02:37
[2017-04-27] MEDS ORDERED: PHEN-538 PO (02:38)
[2017-04-27] MEDS ORDERED: IBUP-1542 PO (02:38)
[2017-04-27] MEDS ORDERED: CIPR500T4 PO (02:38)
[2017-04-27] MEDS ORDERED: ACET500C5 PO (02:38)
[2017-04-27] MEDS ORDERED: CEFTRIAXONE 1 GM INJ IM ONE (03:00)
[2017-04-27] MEDS ORDERED: CEFTRIAXONE 1 GM/50 ML (PMX) 50 ML IVPB ONE (03:00)
== END 2017-04-27 03:09 | disposition home or self-care (01) ==
LOC: FTE 23:49
DX: N30.00 Acute cystitis without hematuria (principal)
CPT/HCPCS: 81003; 96372; 99284; J0696; J1885; Z7610

== ENCOUNTER 2017-05-18 23:40 | Emergency (ER) | END 2017-05-19 00:07 | disposition home or self-care (01) ==

== ENCOUNTER 2017-05-21 00:29 | Emergency (ER) | END 2017-05-21 06:42 | disposition left against medical advice (07) ==

== ENCOUNTER 2017-05-21 18:28 | Emergency (ER) | END 2017-05-21 23:22 | disposition home or self-care (01) ==

== ENCOUNTER 2017-07-14 17:04 | Emergency (ER) | END 2017-07-14 22:16 | disposition home or self-care (01) ==

== ENCOUNTER 2017-08-02 19:33 | Emergency (ER) | END 2017-08-02 20:50 | disposition home or self-care (01) ==

== ENCOUNTER 2017-08-18 14:48 | Emergency (ER) | END 2017-08-18 22:42 | disposition home or self-care (01) ==

== ENCOUNTER 2017-11-18 09:49 | Emergency (ER) | END 2017-11-18 13:50 | disposition home or self-care (01) ==

== ENCOUNTER 2017-11-27 15:14 | Emergency (ER) | END 2017-11-27 18:45 | disposition home or self-care (01) ==